=== PATIENT | female | born 1955 | race Caucasian/White ===

== ENCOUNTER 2018-02-15 08:13 | Outpatient (CLI) | payer OTHER ==
--- NOTE | 2018-02-15 11:34 | MMO ---
BILATERAL DIGITAL SCREENING MAMMOGRAMS: Date: 02/15/18 HISTORY: 62-year-old female presents for digital screening mammogram. FINDINGS: This patient's mammogram was interpreted with the assistance of computer-aided detection. Scattered areas of fibroglandular density are noted bilaterally. There are stable bilateral parenchym al density asymmetries. There are some stable circumscribed nodular foci in both breast which are als o stable and benign-appearing. Occasional typically benign calcifications. IMPRESSION: BIRADS 2: Benign Finding(s) Continue routine screening. POS: OMERO
== END 2018-02-15 08:14 | disposition home or self-care (01) ==
LOC: SCSMAMMO 08:13
PROVIDERS: ATTEND Family Medicine
DX: Z12.31 Encounter for screening mammogram for malignant neoplasm of breast (principal)
CPT/HCPCS: 77067

== ENCOUNTER 2019-02-16 12:49 | Outpatient (CLI) | payer OTHER ==
--- NOTE | 2019-02-16 13:34 | MMO ---
Bilateral MAMMO Bilat Screen DDI. CLINICAL HISTORY: Patient is 63 years old and is seen for screening. The patient has the following family history of breast cancer: mother, at age 63. The patient has no personal history of cancer. VIEWS: The views performed were: bilateral craniocaudal and bilateral mediolateral oblique. FILMS COMPARED: The present examination has been compared to prior imaging studies performed at [facility] on 01/15/2015, 01/17/2016 and 02/15/2018, and at [facility] on 02/26/2017. This study has been interpreted with the assistance of computer-aided detection. MAMMOGRAM FINDINGS: There are scattered fibroglandular densities. There is an equal density nodule measuring 9 millimeters with circumscribed margins seen in the posterior outer region of the right breast. Intramammary lymph node? In the left breast, there are no suspicious masses, calcifications or areas of architectural distortion. IMPRESSION: NODULE IN THE RIGHT BREAST REQUIRES ADDITIONAL EVALUATION. AN ULTRASOUND EXAM IS RECOMMENDED IF NEEDED. SPOT MAGNIFICATION VIEW(S) ARE RECOMMENDED. ACR BI-RADS Category 0 - Incomplete: Need additional imaging evaluation. [facility] will notify the patient of the need for additional imaging services. MAMMOGRAPHY NOTE: 1. A negative mammogram report should not delay a biopsy if a dominant of clinically suspicious mass is present. 2. Approximately 10% to 15% of breast cancers are not detected by mammography. 3. Adenosis and dense breasts may obscure an underlying neoplasm. Reported by: ROMAN CLARK MD Electonically Signed: [id number]
== END 2019-02-16 12:50 | disposition home or self-care (01) ==
LOC: SCSMAMMO 12:49
PROVIDERS: ATTEND Family Medicine
DX: Z12.31 Encounter for screening mammogram for malignant neoplasm of breast (principal); N63.10 Unspecified lump in the right breast, unspecified quadrant; Z80.3 Family history of malignant neoplasm of breast
CPT/HCPCS: 77067

== ENCOUNTER 2019-02-22 09:40 | Outpatient (CLI) | payer OTHER ==
--- NOTE | 2019-02-22 10:32 | MMO ---
Right Breast MAMMO Unilat Diag DDI RT+SHELBIE. CLINICAL HISTORY: Patient is 63 years old and is seen for additional evaluation requested from prior study. The patient has the following family history of breast cancer: mother, at age 63. The patient has no personal history of cancer. VIEWS: The views performed were: right craniocaudal spot compression with tomosynthesis; right mediolateral oblique spot compression with tomosynthesis; and right mediolateral with tomosynthesis. FILMS COMPARED: The present examination has been compared to prior imaging studies performed at [facility] on 02/15/2018 and 02/16/2019, and at [facility] on 02/26/2017 and 02/22/2019. MAMMOGRAM FINDINGS: There are scattered fibroglandular densities. There is a low density, oval mass measuring 7 millimeters with circumscribed margins seen in the right breast at 9 o'clock. The mass was shown to be a cyst on ultrasound. There are no suspicious masses, suspicious calcifications, or new areas of architectural distortion. IMPRESSION: THERE IS NO MAMMOGRAPHIC EVIDENCE OF MALIGNANCY. A ROUTINE FOLLOW-UP MAMMOGRAM IN 1 YEAR IS RECOMMENDED. THE RESULTS OF THIS EXAM WERE SENT TO THE PATIENT. ACR BI-RADS Category 2 - Benign finding MAMMOGRAPHY NOTE: 1. A negative mammogram report should not delay a biopsy if a dominant of clinically suspicious mass is present. 2. Approximately 10% to 15% of breast cancers are not detected by mammography. 3. Adenosis and dense breasts may obscure an underlying neoplasm. Reported by: LEAH SIMMONS MD Electonically Signed: [id number]
--- NOTE | 2019-02-22 10:41 | ULT ---
LIMITED RIGHT BREAST ULTRASOUND: Date: 02/22/19 PROVIDED CLINICAL HISTORY: Abnormal mammogram. FINDINGS: Limited sonographic interrogation of the right breast at the 9 o'clock position was performed in the region of mammographic concern. There is an 8 mm simple cyst present in this region, compatible with the mammogram finding. IMPRESSION: BI-RADS Category 2 - Benign findings. Return to annual screening mammography recommended. POS: OFF
== END 2019-02-22 09:41 | disposition home or self-care (01) ==
LOC: BICMAMMO 09:40
PROVIDERS: ATTEND Family Medicine
DX: N63.10 Unspecified lump in the right breast, unspecified quadrant (principal); R92.8 Other abnormal and inconclusive findings on diagnostic imaging of breast; Z80.3 Family history of malignant neoplasm of breast
CPT/HCPCS: G0279

== ENCOUNTER 2019-09-21 13:46 | Outpatient (CLI) | payer OTHER ==
--- NOTE | 2019-09-21 14:25 | MMO ---
Left Breast MAMMO Unilat Diag DDI LT+SHELBIE. CLINICAL HISTORY: Patient is 63 years old and is seen for diagnostic exam and pain in the left breast. The patient has the following family history of breast cancer: mother, at age 63, AND LUNG. The patient has no personal history of cancer. VIEWS: The views performed were: left craniocaudal with tomosynthesis; left mediolateral oblique with tomosynthesis; and left mediolateral with tomosynthesis. FILMS COMPARED: The present examination has been compared to prior imaging studies performed at [facility] on 02/16/2019, and at [facility] on 02/22/2019 and 09/21/2019. This study has been interpreted with the assistance of computer-aided detection. MAMMOGRAM FINDINGS: There are scattered fibroglandular densities. There are no suspicious masses, suspicious calcifications, or new areas of architectural distortion. There are no mammographic or sonographic abnormalities to explain the patient's breast pain. The patient is referred back to her clinician. Negative imaging findings should not preclude biopsy if clinical findings are suspicious. IMPRESSION: THERE ARE NO MAMMOGRAPHIC ABNORMALITIES TO EXPLAIN THE PATIENT'S BREAST PAIN. THE PATIENT IS REFERRED BACK TO HER CLINICIAN. NEGATIVE IMAGING FINDINGS SHOULD NOT PRECLUDE BIOPSY IF CLINICAL FINDINGS ARE SUSPICIOUS. THE RESULTS OF THIS EXAM WERE SENT TO THE PATIENT. ACR BI-RADS Category 1 - Negative MAMMOGRAPHY NOTE: 1. A negative mammogram report should not delay a biopsy if a dominant of clinically suspicious mass is present. 2. Approximately 10% to 15% of breast cancers are not detected by mammography. 3. Adenosis and dense breasts may obscure an underlying neoplasm. Reported by: LEAH SIMMONS MD Electonically Signed: [id number]
--- NOTE | 2019-09-21 14:26 | MMO ---
Left US Breast Limited Lt. CLINICAL HISTORY: Patient is 63 years old and is seen for . VIEWS: The views performed were: . FILMS COMPARED: The present examination has been compared to prior imaging studies performed at [facility] on 02/16/2019, and at [facility] on 02/22/2019 and 09/21/2019. This study has been interpreted with the assistance of computer-aided detection. LEFT BREAST ULTRASOUND FINDINGS: There are no mammographic or sonographic abnormalities to explain the patient's breast pain. The patient is referred back to her clinician. Negative imaging findings should not preclude biopsy if clinical findings are suspicious. IMPRESSION: THERE ARE NO SONOGRAPHIC ABNORMALITIES TO EXPLAIN THE PATIENT'S BREAST PAIN. THE PATIENT IS REFERRED BACK TO HER CLINICIAN. NEGATIVE IMAGING FINDINGS SHOULD NOT PRECLUDE BIOPSY IF CLINICAL FINDINGS ARE SUSPICIOUS. THE RESULTS OF THIS EXAM WERE SENT TO THE PATIENT. ACR BI-RADS Category 1 - Negative MAMMOGRAPHY NOTE: 1. A negative mammogram report should not delay a biopsy if a dominant of clinically suspicious mass is present. 2. Approximately 10% to 15% of breast cancers are not detected by mammography. 3. Adenosis and dense breasts may obscure an underlying neoplasm. Reported by: LEAH SIMMONS MD Electonically Signed: [id number]
== END 2019-09-21 13:47 | disposition home or self-care (01) ==
LOC: BICMAMMO 13:46
PROVIDERS: ATTEND Family Medicine
DX: N63.20 Unspecified lump in the left breast, unspecified quadrant (principal)
CPT/HCPCS: G0279